=== PATIENT | female | born 1990 | race Caucasian/White ===

== ENCOUNTER → 2019-04-18 | Emergency (ER) | payer OTHER ==
[~2019-04-18] VITALS: Ht 157.5 cm; Wt 88.6 kg
[2019-04-18 20:16] VITALS: BP 155/65
[2019-04-18 21:04] LABS: BACTERIA,URINE NEGATIVE /HPF; BILIRUBIN,URINE NEGATIVE (NEGATIVE); CLARITY,URINE SLT CLOUDY; COLOR,URINE YELLOW; GLUCOSE, URINE (UA) NEGATIVE (NEGATIVE); KETONES,URINE NEGATIVE (NEGATIVE); LEUKOCYTE ESTERASE ,URINE TRACE (NEGATIVE); NITRITE,URINE NEGATIVE (NEGATIVE); PROTEIN,URINE NEGATIVE (NEGATIVE); WBC,URINE 0-2 /HPF
== END | disposition left against medical advice (07) ==
LOC: ER FS 19:51
DX: R06.89 Other abnormalities of breathing (principal); M54.9 Dorsalgia, unspecified
CPT/HCPCS: 81000; 99281